=== PATIENT | male | born 1955 | race Two or more races ===

== ENCOUNTER 2017-05-24 22:20 | Emergency (ER) | payer SELFPAY ==
[2017-05-24 22:30] VITALS: BP 121/84; PULSE 94; RESP 18; TEMP 97.8; O2SAT 100
--- NOTE | 2017-05-24 23:08 | ED PDOC ---
HPI: Skin/Bite Injury Time Seen by Provider: 05/24/17 22:34 Chief Complaint (Nursing): Male Genitourinary Chief Complaint (Provider): Itchy rash on the testicles x weeks History Per: Patient History/Exam Limitations: no limitations Onset/Duration Of Symptoms: Days Current Symptoms Are (Timing): Still Present Quality Of Symptoms: Painful, Itching Severity: Moderate Additional Complaint(s): Pt reports itchy rash which is now painful on the testicles. Pt states he would like something for the itchiness. Pt reports no psychiatric history. Denies SI/ HI. PT calm and cooperative in ER. Past Medical History Reviewed: Historical Data, Nursing Documentation, Vital Signs Vital Signs: Last Vital Signs Temp 97.8 F 05/24/17 22:23 Pulse 94 H 05/24/17 22:23 Resp 18 05/24/17 22:23 BP 121/84 05/24/17 22:23 Pulse Ox 100 05/24/17 22:23 - Medical History PMH: No Chronic Diseases - Family History Family History: States: No Known Family Hx - Home Medications Home Medications: Ambulatory Orders Medication Instructions Recorded Nystatin [Mycostatin Oint] 30 applic EXT BID #2 tube 05/24/17 - Allergies Allergies/Adverse Reactions: Allergies Allergy/AdvReac Type Severity Reaction Status Date / Time ciprofloxacin [From Cipro] Allergy Intermediate ANAPHYLAXIS Verified 05/24/17 23 :04 Physical Exam - Reviewed Nursing Documentation Reviewed: Yes Vital Signs Reviewed: Yes - Physical Exam Appears: Positive for: Well, Non-toxic, No Acute Distress Head Exam: Positive for: ATRAUMATIC, NORMAL INSPECTION, NORMOCEPHALIC Skin: Positive for: Warm, Rash (Erythematous inflammed rash on the testicles and groin ). Negative for: Normal Color Eye Exam: Positive for: Normal appearance ENT: Positive for: Normal ENT Inspection Neck: Positive for: Normal, Painless ROM Cardiovascular/Chest: Positive for: Regular Rate, Rhythm Respiratory: Positive for: CNT, Normal Breath Sounds Gastrointestinal/Abdominal: Negative for: Tenderness Back: Positive for: Normal Inspection Extremity: Positive for: Normal ROM Neurologic/Psych: Positive for: Alert, Oriented - ECG O2 Sat by Pulse Oximetry: 100 Disposition - Clinical Impression Clinical Impression: Marivel infection - Patient ED Disposition Is Patient to be Admitted: No Counseled Patient/Family Regarding: Diagnosis, Need For Followup, Rx Given - Disposition Referrals: [facility] [Outside] Disposition: Routine/Home Disposition Time: 23:18 Condition: GOOD Prescriptions: Nystatin [Mycostatin Oint] 30 applic EXT BID #2 tube Instructions: Skin Yeast Infection (ED)
== END 2017-05-25 00:18 | disposition home or self-care (01) ==
LOC: H.ER 22:20
DX: B37.9 Candidiasis, unspecified (principal)